=== PATIENT | female | born 1985 | race Native Hawaiian/Other Pacific Islander ===

== ENCOUNTER 2021-03-27 07:33 | Emergency (ER) | payer OTHER ==
[~2021-03-27] VITALS: Ht 175.3 cm; Wt 107.5 kg
[2021-03-27 07:42] VITALS: TEMP 97.5
[2021-03-27 09:18] VITALS: BP 166/94
== END 2021-03-27 09:19 | disposition still patient (30) ==
LOC: ED 07:33
DX: R10.84 Generalized abdominal pain (principal); Z84.1 Family history of disorders of kidney and ureter
CPT/HCPCS: 81000; 81025; 96372; 99283; J0696; J1885